=== PATIENT | male | born 1945 | race Caucasian/White ===

== ENCOUNTER → 2016-06-28 | Outpatient (CLI) | payer OTHER | END | disposition home or self-care (01) | LOC: GMAB 14:50 | PROVIDERS: ATTEND Family Medicine | DX: R53.82 Chronic fatigue, unspecified (principal); Z12.5 Encounter for screening for malignant neoplasm of prostate; Z79.899 Other long term (current) drug therapy | CPT/HCPCS: 84403; 84443; G0103 ==

== ENCOUNTER → 2018-06-29 | Outpatient (CLI) | payer OTHER ==
--- NOTE | 2018-06-29 20:10 | US ---
EXAM DESCRIPTION: Soft Tissue,Extremity: ULTRASOUND. CLINICAL HISTORY: 72 years Male LOCALIZED Swelling, mass, LUMP, RT UPPER LIMB COMPARISON: None Available. TECHNIQUE: Transcutaneous scanning: Townsend-scale and Doppler modes. FINDINGS: Hypoechoic mass with thickened capsule in the right shoulder corresponding to palpable lesion. Complex echoes in the mass which also appears to have a solid component which demonstrates mostly hypoechoic heterogeneous echoes. Dimensions of the mostly cystic region are 4.0 x 1.9 x 2.7 cm. Minimal vascularity on the margins of the cystic portion. No tracts are seen to the overlying subcutaneous adipose tissue. IMPRESSION: Complex partially solid partially cystic mass which is palpable in the right shoulder region. This may be located within the muscular layer. Minimal vascularity, no superficial tracts. Differential includes abscess, partially liquefied hematoma, necrotic tumor or inflammatory lesion. Electronically signed by: Stanislaw Atkins MD 06/29/2018 8:08 PM CDT
== END ==
LOC: US 12:07
PROVIDERS: ATTEND Family Medicine
DX: R22.31 Localized swelling, mass and lump, right upper limb (principal)

== ENCOUNTER → 2018-07-03 | Outpatient (CLI) | payer OTHER ==
--- NOTE | 2018-07-04 08:40 | MRI ---
Study: MRI of the Right Shoulder. Indication: R22.31 SHOULDER MASS Technique: Multiplanar, multi sequence MRI of the right shoulder was obtained with and without intravenous contrast. Comparison: None. Findings: Severe hypertrophic AC joint osteoarthritis. Tracking along the superomedial margin of the joint there is a multilobulated ganglion measuring approximately 47 mm transverse by 38 mm AP by 20 mm craniocaudal. Enhancement of the peripheral margins and the septations noted as well as surrounding enhancement within the subcutaneous edema. No nodular enhancement identified. Prior rotator cuff tendon repair with suture anchors present. Superior migration humeral head abutting the undersurface of the acromion which is remodeled. Full-thickness, fullwidth recurrent supraspinatus and infraspinatus tendon tearing with retraction of torn tendon fibers to the level of the glenohumeral joint line. Subscapularis tendinosis with high-grade articular tearing superior two thirds tendon insertion. Mild atrophy and grade 2-3 fatty infiltration supraspinatus and infraspinatus muscle bellies with mild atrophy and grade 1/2 fatty infiltration subscapularis and teres minor muscle bellies. Long head biceps tendinosis and longitudinal split tearing with partial medial subluxation onto the lesser tuberosity. No transection. Circumferential labral tearing and truncation. Patchy areas of grade 2 and 3 chondrosis throughout the joint. Mild inferior osteophytes. No acute fracture. Thickening and edema inferior glenohumeral ligament which can be seen with adhesive capsulitis. Impression: Severe AC joint osteoarthritis with a large multilobulated ganglion tracking along its superior margin. Recurrent full-thickness, fullwidth retracted supraspinatus and infraspinatus tendon tearing. High-grade articular tearing superior two thirds subscapularis tendon. Atrophy and fatty infiltration rotator cuff musculature as above. Long head biceps tendinosis and longitudinal split tearing with partial medial subluxation. Circumferential labral tearing and truncation. Mild glenohumeral joint osteoarthritis. Adhesive capsulitis. Electronically signed by: Con Tom MD 07/04/2018 8:38 AM CDT
== END ==
LOC: MRI 14:24
PROVIDERS: ATTEND Family Medicine
DX: M19.011 Primary osteoarthritis, right shoulder (principal); S46.011D Strain of muscle(s) and tendon(s) of the rotator cuff of right shoulder, subsequent encounter; M62.511 Muscle wasting and atrophy, not elsewhere classified, right shoulder; M75.21 Bicipital tendinitis, right shoulder; M75.01 Adhesive capsulitis of right shoulder; M67.411 Ganglion, right shoulder

== ENCOUNTER → 2018-07-10 | Outpatient (CLI) | payer OTHER | LOC: GMAE 10:30 | PROVIDERS: ATTEND Family Medicine | DX: Z12.5 Encounter for screening for malignant neoplasm of prostate (principal); Z79.899 Other long term (current) drug therapy | CPT/HCPCS: 84443; G0103 ==

== ENCOUNTER → 2019-07-31 | Outpatient (CLI) | payer OTHER | LOC: GMAE 11:56 | PROVIDERS: ATTEND Family Medicine | DX: Z12.5 Encounter for screening for malignant neoplasm of prostate (principal); Z79.899 Other long term (current) drug therapy; E78.5 Hyperlipidemia, unspecified | CPT/HCPCS: 84443; G0103 ==